=== PATIENT | female | born 1960 | race Caucasian/White ===

== ENCOUNTER 2016-10-15 17:27 | Observation (INO) ==
[2016-10-15] MEDS ORDERED: Naloxone 0.4 MG/ML INJ IVP PRN (21:18)
--- NOTE | 2016-10-15 21:54 | Internal Med History&Physical ---
Date of Encounter: 10/15/16 Time of Encounter: 21:48 Assessment and Plan (1) New onset seizure Current visit: Yes Status: Acute 1 patient had a witnessed seizure today she was incontinent of bowel. Patient does not have any past history of seizure CT of head was negative for any intracranial abnormalities. We will place on seizure precautions 2 we will obtain MRI of head and brain without contrast 3 obtain EEG 4Consult neurology (2) Chest pain Current visit: Yes Status: Acute 1 patient states that she has been experiencing intermittent chest pain which she describes as sharp nonradiating. No aggravating or relieving factors and is relieved on own. First cardiac troponin is 0.0564 continue to trend cardiac troponins 2 we will obtain a EKG, continuous cardiac monitoring 3 we will continue with aspirin and statin, beta elzbieta 4 we will obtain cardiac echo 5 consult cardiology Qualifiers: Chest pain type: unspecified Qualified Code(s): R07.9 - Chest pain, unspecified (3) Hypertension Current visit: Yes Status: Acute 1 presently controlled we will continue with home medications Qualifiers: Hypertension type: essential hypertension Qualified Code(s): I10 - Essential (primary) hypertension (4) DVT prophylaxis Current visit: Yes Status: Acute 1 SCDs Internal Medicine - H&P: HPI Chief complaint: Seizure Admitted From: Hospital to Hospital Transfer Plans for Post Hospital Care: Home History of present illness: Ms. Parker is a 56 year old female Past medical history of hypertension and hyperlipidemia GERD headaches chronic back pain. Information obtained from medical records/patient. Patient was shopping at a local grocery store when she was at the checkout line and she began to feel lightheaded somewhat dazed. She thought that maybe due to low sugar and drank some sweet tea. Her son noted that she was sweating profusely. Once she her family got into the car the patient tensed up and began to have seizure activity. Has reports that she was foaming at the mouth and lost control of her bowels. This episode occurred approximately 1:15. EMS was called and patient was transported to [facility]. Once at the ED the patient remained and responsive to verbal stimuli. After administering ammonia salts patient awoke became agitated she is moving all extremities at that time CT of her head was obtained which was negative for any intracranial abnormality when she returned back from CT scan patient was more awake appropriate following commands. Lab work was obtained her drug screen was negative troponin was 0.056 lactate was 3 white count 16.3 BUN was 20 and creatinine 1.32 urinalysis with small amount of gastritis and a few bacteria CT of head asymmetry of the frontal horns radiology does not find no significant some minimal inflammatory changes involving last mastoid sinus. Patient was transported to our facility for further workup and evaluation. Patient does admit that she has not been feeling well for the past week. She has been experiencing off and on headaches which she describes as throbbing totally encompassing her head they are relieved with ibuprofen. She denies any photophobia or vision changes nausea or vomiting with headaches. She also has been experiencing midsternal sharp nonradiating chest pain which comes and goes there are no aggravating or relieving factors the pain last proximally 10 minutes and resolves on own she denies any family history of seizures she denies any past cardiac history or cardiac workup. Presently she denies any chest pain or shortness of breath no seizure activity noted at this time lung sounds are clear heart sounds S1 and S2 with no rubs clicks gallops murmurs noted neuro check within normal limits cranial nerves II through XII are intact. She is hemodynamically stable this time. I reviewed this case with who agrees with plan. Past Med Surg Social Fam HX - Family History Mother Living Status: Cause of : Heart Father Living Status: Cause of : Colon cancer Internal Medicine - H&P: Meds Allergies No Known Allergies Allergy (Verified 10/15/16 21:51) All Systems PM: A 10-system review of systems was performed and is negative for pertinent findings except as documented above in the HPI. - Constitutional Constitutional: excessive sweating, no chills, no fever(s), no night sweats - EENT Eyes: no change in vision, no discharge, no pain, no photophobia - Cardiovascular Cardiovascular ROS IM: chest pain, lightheadedness, no diaphoresis, no dyspnea, no palpitations, no syncope - Respiratory Respiratory: no cough, no dyspnea, no wheezing, no excessive phlegm production - Gastrointestinal Gastrointestinal: no abdominal pain, no diarrhea, no hematemesis, no hematochezia, no melena, no nausea, no vomiting - Genitourinary Genitourinary: no change in urinary stream, no dysuria, no flank pain, no hematuria - Musculoskeletal Musculoskeletal ROS IM: no numbness, no tingling - Integumentary Integumentary IM: no rash, no unusual bruising - Neurological Neurological ROS: headache(s), no confusion, no convulsions, no focal weakness, no numbness, no tingling, no tremor(s) - Constitutional Vitals: Temp Pulse Resp BP Pulse Ox 98.3 F 86 18 145/84 96 10/15/16 19:51 10/15/16 19:51 10/15/16 19:51 10/15/16 19:51 10/15/16 19:51 General appearance: Present: A&O X 3, answers questions appropriately - Head Head exam: Present: atraumatic, normocephalic - Eye Eye exam: Present: PERRL, conjuntiva pink, sclera anicteric Pupils: Present: PERRL - Neck Neck exam general surgery: Present: supple, trachea midline. Absent: lymphadenopathy - Respiratory Respiratory exam: Present: CTAB. Absent: accessory muscle use, rales, rhonchi, wheezes - Cardiovascular Cardiovascular exam: Present: RRR, +S1, +S2. Absent: diastolic murmur, gallop, rubs, systolic murmur - GI/Abdominal GI/Abdominal exam: Present: normal bowel sounds, soft, no peritoneal signs. Absent: distended, tenderness - Extremities Exam Extremities exam: Present: warm, radial pulses palpable and symetrical. Absent : calf tenderness, cyanotic, pedal edema - Skin Skin exam: Present: dry, intact Internal Med - H&P Results - Labs Labs: Lab work drawn 10/15/2016 CBC WBC 16.3 hemoglobin 13.8 hematocrit 43.8 platelets 304 Chemistries sodium 149 potassium 3.5 chloride 106 bicarbonate 18 BUN 23 and 1.3 to glucose 181 GFR 50 PT 12.6 troponin 0. 056 lactate 3
[2016-10-15] MEDS ORDERED: Aspirin 325 MG TABLET PO ONE (22:01)
[2016-10-15] MEDS ORDERED: *HR* LORazepam 2 MG/ML VIAL IVP PRN (23:29)
[2016-10-15] MEDS ORDERED: Benzocaine 20% 9 GM GEL..GRAM. TP PRN (23:29)
[2016-10-16] MEDS: 0.9 % Sodium Chloride 1,000 ML IVC SCH ×3 (00:23→21:25)
[2016-10-16 03:20] LABS: Basophils # 0.1 K/mcL (0.0-0.2); Basophils % 0.5 %; Eosinophils # 0.1 K/mcL (0.0-0.6); Eosinophils % 0.7 %; Hematocrit 36.2 % (35.3-44.9); Hemoglobin 11.9 g/dL (11.5-15.4); Immature Granulocytes % 0.6 % (0-4); Immature Platelets 3.1 % (1.1-6.1); Lymphocytes # 2.7 K/mcL (0.6-4.6); Lymphocytes % 22.2 %; Mean Corpuscular HGB Conc 32.9 g/dL (31.6-35.5); Mean Corpuscular Hemoglobin 28.8 pg (28.0-33.3); Mean Corpuscular Volume 87.7 fL (83.0-100.0); Monocytes # 1.1 K/mcL (0.0-1.3); Monocytes % 8.6 %; Neutrophils # 8.2 K/mcL (1.6-8.9); Platelet Count 216 K/mcL (140-400); Red Blood Count 4.13 M/mcL (3.82-4.97); Red Cell Distribution Width 13.9 % (11.5-14.5); Segmented Neutrophils % 67.4 %
[2016-10-16 03:34] LABS: BUN/Creatinine Ratio 16 (6-26); Blood Urea Nitrogen 15 mg/dL (7-20); Carbon Dioxide 21 mEq/L (19-29); Chloride 108 mEq/L (98-109); Chol/HDL Ratio 4.3 (0-4.9); Cholesterol 173 mg/dL (< 200); Glucose 115 mg/dL (70-99); HDL Cholesterol 40 mg/dL (40-59); LDL Cholesterol,Calculated 85 mg/dL (0-99); Osmolality,Calculated 294 (280-300); Sodium 141 mEq/L (136-145); Triglycerides 238 mg/dL (< 150); eGFR For African Americans > 60 (> 60); eGFR For Non-African Americans > 60 (> 60)
[2016-10-16 03:40] LABS: Potassium 2.4 mEq/L (3.5-4.5)
[2016-10-16 03:54] LABS: Thyroid Stimulating Hormone 1.608 mcIU/mL (0.350-4.840)
[2016-10-16 06:15] LABS: Hemoglobin A1C 5.7 %
--- NOTE | 2016-10-16 09:36 | Internal Med Progress Note ---
<Juan J Cloud Jackson - Last Filed: 10/16/16 10:38> Date of Encounter: 10/16/16 Time of Encounter: 09:31 - Assessment and plan (1) Hypokalemia Current Visit: Yes Status: Acute Assessment and plan: Mrs. Parker states that she has a history of hypokalemia and takes daily oral potassium. She denies ever having a potassium as low as 2.4 in the past. - She does admit to taking a diuretic such as Lasix 40 daily for fluid retention. Plan: - Patient received 1 dose of oral potassium this morning. - Stat repeat on potassium level - will give 40 meq potassium orally now. - May require IV potassium replacement. (2) New onset seizure Current Visit: Yes Status: Acute Assessment and plan: patient had a witnessed seizure today she was incontinent of bowel. Patient denies any past history of seizure. CT of head was negative for any intracranial abnormalities. Currently on seizure precautions and denies any seizure activity since admission. -TSH 1.608 - Potassium 2.4 - Magnesium 2.0 Discussion with the patient demonstrates that she had recent changes(in the last 5 months) to her SNRI and SSRI dosing at home. This is likely contributing to her current seizure activity. - Her medications are not updated and nursing has called the pharmacy to obtain a recent medication list so that we can address her underlying medical conditions. - She has a history of thyroid cancer with a total thyroidectomy. Today's TSH is 1.608, calcium is 8.0 Plan: -Neurology has been consulted - Continue seizure precautions - Continue to replace potassium deficiency. - Interventional radiology consult to for lumbar puncture. (3) Chest pain Current Visit: Yes Status: Acute Assessment and plan: Patient presented with atypical chest pain with intermittent episodes of substernal to right chest pain, she is not taking anything to relieve it she denies any exacerbating factors and it does not radiate anywhere. - Thrombolysis In Myocardial Infarction Score: 3 ( greater than 3 risk factors for coronary artery disease, aspirin use in the last 7 days, 2 episodes of angina in 24 hours) Score of 3 = 13.2% risk 14 days of: all-cause mortality, new or recurrent MN, or severe recurrent ischemia requiring urgent revascularization. - EKG Chad's normal sinus rhythm without any ST elevations or inversions with normal access. There is a prolonged QTC at 0.440 likely secondary to hypokalemia. Plan: - Continue with aspirin daily 81 mg - Lipitor 40 mg by mouth daily Qualifiers: Chest pain type: unspecified Qualified Code(s): R07.9 - Chest pain, unspecified (4) Hypertension Current Visit: Yes Status: Acute Assessment and plan: Patient states that she takes Lopressor 100 mg twice a day for her blood pressure. Current medication list reconciled does not demonstrate any antihypertensives. Patient is hypertensive currently. Plan: - Patient states that she takes Lopressor 100 mg twice a day we will continue that currently. Qualifiers: Hypertension type: essential hypertension Qualified Code(s): I10 - Essential (primary) hypertension (5) DVT prophylaxis Current Visit: Yes Status: Acute Assessment and plan: SCD - Subjective Interval history: Mrs. Parker 56-year-old female has been seen and evaluated patient bedside this morning. She is alert, awake, no acute distress and denies any seizure activity since her 1 episode. She denies any headaches, blurry vision, trouble with thought process, chest pain, chest pressure, palpitations, nausea vomiting diarrhea constipation or abdominal pain. She denies any urinary discomfort and burning or blood in her urine. She denies any recent illnesses in the last 6 months. She did have her thyroid removed roughly 5 months ago secondary to thyroid cancer. In describing the events leading up to her seizure she said she was in her normal state of health without any fevers, chills, change in diet or sleep awake cycles. She said roughly 5 months ago she had her Effexor dose increased for her depression. She denies missing any doses of home medications. Currently she feels back to her normal self and denies any neurologic changes. - Constitutional Vitals: Temp Pulse Resp BP Pulse Ox 98.3 F 99 15 157/88 95 10/16/16 06:21 10/16/16 06:21 10/16/16 06:21 10/16/16 06:21 10/16/16 06:21 General appearance: Present: A&O X 3, answers questions appropriately Exam: General: Patient alert, awake, oriented 3, interactive, in no acute distress HEENT: Normocephalic, atraumatic, pupils equal reactive to light, nasal cavity patent and open septum median position, oral mucosa moist, bite koo in the left lateral tongue. uvula midline, neck supple trachea midline no palpable lymphadenopathy, Chest: Symmetric bilateral correlating with respiratory effort, effort nonlabored. Cardiac: Regular rate and rhythm, positive S1, S2, no bruits appreciated bilateral carotids, Radial pulses 2+ bilateral, posterior tibial and dorsal pedal pulses 2+ bilateral. Respiratory: Clear to auscultation all lung owens Abdomen: Soft, nontender, positive bowel sounds, no palpable masses appreciated on examination Extremities: Symmetric bilateral, no erythema or edema, patient moving all 4 extremities spontaneously. Neurologic: No focal deficits appreciated on examination. Face symmetric, muscle strength symmetric bilateral upper and lower extremities. Pupils 5-6 mm symmetric bilateral, hyperreflexic 3+ bilateral lower extremities with diminished upper reflexes. Internal Medicine: Result - Labs CBC & Chem 7: 10/16/16 02:46 10/16/16 09:45 Labs: Short CBC 10/16/16 Range/Units 02:46 WBC 12.2 H (4.3-11.1) K/mcL Hgb 11.9 (11.5-15.4) g/dL Hct 36.2 (35.3-44.9) % Plt Count 216 (140-400) K/mcL Neutrophils # 8.2 (1.6-8.9) K/mcL BMP 10/16/16 02:46 Sodium 141 Potassium 2.4 L* Chloride 108 Carbon Dioxide 21 BUN 15 Creatinine 0.91 Glucose 115 H Calcium 8.0 L Cardiac Enzymes 10/15/16 10/16/16 Range/Units 22:12 02:46 Troponin I 0.01 0.01 (0-0.03) ng/mL - Impressions Impressions Chest X-Ray 10/15/16 21:24 IMPRESSION: No acute process. D/ / Thierry Lam MD / Thierry Lam MD Interpreting Provider: Thierry Lam MD - VTE Documentation of Mechanical Device: Graduated compression elastic hosiery Consult Discharge Plan - Plan Referrals: Amira Oro MD [Primary Care Provider] - <Dannie Ndiaye - Last Filed: 10/16/16 15:13> Date of Encounter: 10/16/16 - Constitutional Vitals: Temp Pulse Resp BP Pulse Ox 98.3 F 108 15 163/87 95 10/16/16 11:00 10/16/16 11:00 10/16/16 11:00 10/16/16 11:00 10/16/16 11:00 Internal Medicine: Result - Labs CBC & Chem 7: 10/16/16 02:46 10/16/16 14:33 Labs: Short CBC 10/16/16 Range/Units 02:46 WBC 12.2 H (4.3-11.1) K/mcL Hgb 11.9 (11.5-15.4) g/dL Hct 36.2 (35.3-44.9) % Plt Count 216 (140-400) K/mcL Neutrophils # 8.2 (1.6-8.9) K/mcL BMP 10/16/16 10/16/16 10/16/16 02:46 09:45 14:33 Sodium 141 Potassium 2.4 L* 2.6 L 2.8 L Chloride 108 Carbon Dioxide 21 BUN 15 Creatinine 0.91 Glucose 115 H Calcium 8.0 L Cardiac Enzymes 10/15/16 10/16/16 Range/Units 22:12 02:46 Troponin I 0.01 0.01 (0-0.03) ng/mL Urine 10/16/16 Range/Units 09:20 Urine Color Yellow (Yellow) Urine Clarity Clear (Clear) Urine pH 6.0 (5.0-8.0) pH Units Ur Specific [place] 1.029 H (1.010-1.025) Urine Protein Trace (Neg-Trace) mg/dL Urine Glucose (UA) Normal (Normal) mg/dL - Impressions Impressions Chest X-Ray 10/15/16 21:24 IMPRESSION: No acute process. D/ / Thierry Lam MD / Thierry Lam MD Interpreting Provider: Thierry Lam MD - Attending Attestation I saw and examined pt. I have discussed with Resident Dr Cloud regarding pt's management plan. I agree with the documentation. Pt present with witnessed seizure with tongue bite. No previous hx of seizure. Pt feels fine now, no further seizure, denies fever, headache, or dizziness. Neuro consult appreciated. Need to r/o infection etiology. Acyclovir started empirically. Need MRI and LP per neuro. Cont seizure precaution.
[2016-10-16 10:11] LABS: Bilirubin,Urine Negative (Negative); Blood,Urine Negative (Negative); Clarity,Urine Clear (Clear); Color,Urine Yellow (Yellow); Glucose,Urine (UA) Normal (Normal); Ketones,Urine Negative (Negative); Leukocyte Esterase,Urine Small (Negative); Nitrite,Urine Negative (Negative); Protein,Urine Trace mg/dL (Neg-Trace); Specific Gravity,Urine 1.029 (1.010-1.025); Urobilinogen,Urine Normal (Normal)
[2016-10-16 10:12] LABS: Bacteria,Urine None Seen per hpf (None-Few); Hyaline Casts,Urine None Seen per lpf (None-Few); Squamous Epithelial Cell,Urine Many per lpf (None-Few); WBC,Urine 15-30 per hpf (0-3)
[2016-10-16] MEDS ORDERED: Potassium Chloride 40 MEQ, Lidocaine 1% 2 ML in D5% in Water 500 ML IVPB ONE (10:45)
--- NOTE | 2016-10-16 12:14 | Neurology - Consult Note ---
Date of Encounter: 10/16/16 Time of Encounter: 12:09 Assessment and Plan (1) New onset seizure Current Visit: Yes Status: Acute 56-year old woman with new-onset seizure in a patient with history of thyroid cancer, many months of nightsweats, low potassium, asymmetric reflexes, highly suspicious for cancer metastasis to the brain. Needs further evaluation. 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 Serotonin syndrome is a diagnosis of exclusion in this condition, but seems least likely, given the other constellation of symptoms and findings and the time course. MRI brain with and without contrast Seizure precautions ESR, CRP, HSV PCR, lumbar puncture (prophylactic acyclovir) Neurology follow-up tomorrow. History of Present Illness Chief complaint: seizure HPI: Ms. Parker is a 56 year old female with prior history of thyroid cancer, family history of colon cancer and lymphoma, who had a seizure at [facility]. Had LOC, urine and fecal incontinence, and tongue biting. Had a long post-ictal phase in the ER. She was admitted to the hospital through another ER/hospital for evaluation. She states that she has depression and is on two medications for the same, but her doses have not been changed recently. Last change was in May. She also states that she has been having night sweats for many months. Her thyroid cancer was discovered in a thyroidectomy, in march 2016. She states that she is back to her normal self now. 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 Past Med Surg Social Fam HX - Past Medical History Medical history: hypertension, thyroid disease (history of thyroid cancer) Psychiatric history: depression - Past Surgical History Surgical History: hysterectomy, orthopedic, other, thyroidectomy (had thyroid cancer) - Social History Smoking Status: Never smoker Alcohol use: none Drug use: none - Family History Mother Living Status: Age at : 76 Cause of : Heart Hx Family Cardiac Disorders: Yes Father Living Status: Age at : 66 Cause of : Colon cancer Medications and Allergies Estrogens, Conjugated [Premarin Cream] 1 appl VG 4XW 10/16/16 [History] Etodolac 500 mg PO BID 10/16/16 [History] Levothyroxine [Synthroid] 100 mcg PO 0630 10/16/16 [History] Levothyroxine [Synthroid] 125 mcg PO 0610/16/16 [History] Liothyronine Sodium [Cytomel] 5 mcg PO DAILY 10/16/16 [History] Oxycodone HCl/Acetaminophen [Percocet 5-325 mg Tablet] 1 - 2 each PO Q4H PRN [History] Venlafaxine XR (24 HR) [Effexor XR] 75 mg PO DAILY 10/16/16 [History] Venlafaxine XR (24 HR) [Effexor XR] 150 mg PO DAILY 10/16/16 [History] Allergies No Known Allergies Allergy (Verified 10/15/16 21:51) All Systems: A 10-system review of systems was performed and is negative for pertinent findings except as documented above in the HPI. Physical Examination - Vital Signs Vital Signs: Initial Vital Signs Temp Pulse Resp BP Pulse Ox 98.3 F 86 18 145/84 96 10/15/16 19:51 10/15/16 19:51 10/15/16 19:51 10/15/16 19:51 10/15/16 19:51 Vital Signs - 24 hr 10/15/16 19:51 10/15/16 23:01 10/16/16 03:16 Temperature 98.3 F 98.4 F 98.5 F Pulse Rate 86 99 103 Respiratory Rate 18 17 17 Blood Pressure 145/84 157/94 138/87 O2 Sat by Pulse Oximetry 96 95 96 10/16/16 06:21 10/16/16 09:00 Temperature 98.3 F Pulse Rate 99 Respiratory Rate 15 Blood Pressure 157/88 O2 Sat by Pulse Oximetry 95 95 - Constitutional General appearance: comfortable - Neurologic Sensorimotor examination: intact Motor examination - right side: 5/5: deltoids, biceps, triceps, wrist flexion, wrist extension, order desk caller, hip flexors, tibialis Anterior, quadriceps, toe extension (EHL), plantarflexion Motor examination - left side: 5/5: deltoids, biceps, triceps, wrist flexion, wrist extension, hip flexors, order desk caller, quadriceps, tibialis Anterior, toe extension (EHL), plantarflexion Detailed sensory examination: intact Reflexes: Biceps: 3+, Triceps: 3+, Brachioradialis: 3+, Patella: 3+, Achilles: 3 + (asymmetric hyper-reflexia on the left - 3+ on left, 2+ on right, bilaterally up going toes.) Mental Status Examination: awake, alert, oriented to person, oriented to place, oriented to time, follows commands appropriately, answers questions appropriately, no agnosia, no aphasia, no aproxia Cranial nerve examination: PERRL, EOMI, visual owens intact, corneal reflexes brisk symmetrically, sensory to face intact, mastication intact, no facial asymmetry is present, no dysarthria, hearing is intact symmetrically, soft palate elevates bilaterally upon phonation, gag reflex intact, flexes SCM and trapezius muscles symmetrically with full power, tongue protrudes midline, no atrophy or facial fasiculations present Cerebellar examination: no dysmetria, performs finger to nose and heel to lockhart symmetrically without ataxia, no gait ataxia, no truncal ataxia, no difficulty with rapid alternating movements Results - Laboratory Findings CBC and BMP: 10/16/16 02:46 10/16/16 09:45 Abnormal lab findings: Abnormal lab results WBC 12.2 K/mcL (4.3-11.1) H 10/16/16 02:46 Potassium 2.6 mEq/L (3.5-4.5) L 10/16/16 09:45 Glucose 115 mg/dL (70-99) H 10/16/16 02:46 POC Glucose 130 (58-89) H 10/15/16 20:10 Hemoglobin A1c 5.7 % (-5.6) H 10/16/16 02:46 Calcium 8.0 mg/dL (8.6-10.8) L 10/16/16 02:46 Triglycerides 238 mg/dL (< 150) H 10/16/16 02:46 VLDL Cholesterol, Calc 48 mg/dL (< 31) H 10/16/16 02:46 Ur Specific [place] 1.029 (1.010-1.025) H 10/16/16 09:20 Ur Leukocyte Esterase Small (Negative) H 10/16/16 09:20 Urine Microscopic RBC 3-5 per hpf (0-3) H 10/16/16 09:20 Urine Microscopic WBC 15-30 per hpf (0-3) H 10/16/16 09:20 Ur Squamous Epith Cells Many per lpf (None-Few) H 10/16/16 09:20 Ur Culture Indicated? YES (NO) A 10/16/16 09:20 - Diagnostic Findings Additional findings: CTH (OSH): asymmetric ventricles (original not seen). Chest X-Ray 10/15/16 21:24 IMPRESSION: No acute process. D/ / Thierry Lam MD / Thierry Lam MD Interpreting Provider: Thierry Lam MD Consult Discharge Plan - Plan Referrals: Amira Oro MD [Primary Care Provider] -
[2016-10-16] MEDS: Acyclovir 750 MG in D5% in Water 250 ML IVPB SCH ×2 (12:57→21:23)
[2016-10-16] MEDS: Metoprolol 100 MG TABLET PO SCH (22:12)
[2016-10-17 05:41] LABS: Basophils # 0.1 K/mcL (0.0-0.2); Eosinophils # 0.1 K/mcL (0.0-0.6); Eosinophils % 1.5 %; Hematocrit 36.8 % (35.3-44.9); Hemoglobin 11.4 g/dL (11.5-15.4); Immature Granulocytes % 0.3 % (0-4); Lymphocytes # 2.2 K/mcL (0.6-4.6); Lymphocytes % 30.8 %; Mean Corpuscular Hemoglobin 28.4 pg (28.0-33.3); Mean Corpuscular Volume 91.8 fL (83.0-100.0); Mean Platelet Volume 10.3 fL (9.4-12.4); Monocytes # 0.7 K/mcL (0.0-1.3); Monocytes % 9.9 %; Neutrophils # 4.1 K/mcL (1.6-8.9); Platelet Count 186 K/mcL (140-400); Red Blood Count 4.01 M/mcL (3.82-4.97); Red Cell Distribution Width 14.4 % (11.5-14.5); Segmented Neutrophils % 56.5 %
[2016-10-17 05:58] LABS: Alanine Aminotransferase 20 Units/L (0-55); Alkaline Phosphatase 74 Units/L (38-126); Aspartate Amino Transferase 20 Units/L (5-34); BUN/Creatinine Ratio 12 (6-26); Bilirubin,Total 0.3 mg/dL (0.2-1.2); Blood Urea Nitrogen 10 mg/dL (7-20); Calcium 7.9 mg/dL (8.6-10.8); Carbon Dioxide 20 mEq/L (19-29); Chloride 116 mEq/L (98-109); Glucose 107 mg/dL (70-99); Osmolality,Calculated 298 (280-300); Sodium 144 mEq/L (136-145); eGFR For African Americans > 60 (> 60); eGFR For Non-African Americans > 60 (> 60)
[2016-10-17] MEDS ORDERED: *HR* Enoxaparin 40 MG/0.4 ML SYRINGE SQ SCH (06:00)
[2016-10-17] MEDS: Acyclovir 750 MG in D5% in Water 250 ML IVPB SCH ×2 (06:06→14:42)
--- NOTE | 2016-10-17 08:04 | Internal Med Progress Note ---
Addendum entered and electronically signed by Juan J Cloud DO 10/17 13:19: Gram-positive UTI: Patient asymptomatic, patient did present with new onset seizure. Currently on ceftriaxone. Original Note: <Juan J Cloud - Last Filed: 10/17/16 13:12> Date of Encounter: 10/17/16 Time of Encounter: 08:04 - Assessment and plan (1) Hypokalemia Current Visit: Yes Status: Acute Assessment and plan: Mrs. Parker states that she has a history of hypokalemia and takes daily oral potassium. She denies ever having a potassium as low as 2.4 in the past. - She does admit to taking a diuretic such as Lasix 40 daily for fluid retention. 10/17/2016 potassium 4.0, patient stable Plan: Continue to monitor potassium level and replace as necessary. -Repeat EKG to monitor QT length. - Continue to avoid using QT prolonging medications. (2) New onset seizure Current Visit: Yes Status: Acute Assessment and plan: patient had a witnessed seizure today she was incontinent of bowel. Patient denies any past history of seizure. CT of head was negative for any intracranial abnormalities. Currently on seizure precautions and denies any seizure activity since admission. -TSH 1.608 - Potassium 2.4 - Magnesium 2.0 Discussion with the patient demonstrates that she had recent changes(in the last 5 months) to her SNRI and SSRI dosing at home. This is likely contributing to her current seizure activity. - Her medications are not updated and nursing has called the pharmacy to obtain a recent medication list so that we can address her underlying medical conditions. - She has a history of thyroid cancer with a total thyroidectomy. Today's TSH is 1.608, calcium is 8.0 10/17/2016: Patient has been stable overnight, potassium corrected. Neurology evaluated the patient yesterday, plan for lumbar puncture today, MRI with and without contrast to evaluate for risk of metastatic disease from recent thyroid cancer. Plan: -Neurology has been consulted - Continue seizure precautions - Continue to replace potassium deficiency. - lumbar puncture today. - MRI with and without contrast pending. (3) Chest pain Current Visit: Yes Status: Acute Assessment and plan: Patient presented with atypical chest pain with intermittent episodes of substernal to right chest pain, she is not taking anything to relieve it she denies any exacerbating factors and it does not radiate anywhere. - Thrombolysis In Myocardial Infarction Score: 3 ( greater than 3 risk factors for coronary artery disease, aspirin use in the last 7 days, 2 episodes of angina in 24 hours) Score of 3 = 13.2% risk 14 days of: all-cause mortality, new or recurrent SC, or severe recurrent ischemia requiring urgent revascularization. - EKG demonstrates normal sinus rhythm without any ST elevations or inversions with normal access. There is a prolonged QTC at 0.440 likely secondary to hypokalemia. 10/17/2016 no chest pain today. Plan: - Continue with aspirin daily 81 mg - Lipitor 40 mg by mouth daily Qualifiers: Chest pain type: unspecified Qualified Code(s): R07.9 - Chest pain, unspecified (4) Hypertension Current Visit: Yes Status: Acute Assessment and plan: Patient states that she takes Lopressor 100 mg twice a day for her blood pressure. Current medication list reconciled does not demonstrate any antihypertensives. Currently normotensive Plan: - Patient states that she takes Lopressor 100 mg twice a day we will continue that currently. Qualifiers: Hypertension type: essential hypertension Qualified Code(s): I10 - Essential (primary) hypertension (5) DVT prophylaxis Current Visit: Yes Status: Acute Assessment and plan: Lovenox 40 mg subcutaneous daily. - Subjective Interval history: Mrs. Parker 56-year-old female has been seen and evaluated patient bedside this morning. She is alert, awake, no acute distress and denies any seizure activity since her 1 episode. She denies any headaches, blurry vision, trouble with thought process, chest pain, chest pressure, palpitations, nausea vomiting diarrhea constipation or abdominal pain. She denies any urinary discomfort and burning or blood in her urine. Further discussion regarding her night sweats demonstrates that she has had nightly sweating since her hysterectomy in this is not a new process. She denies any changes overnight, denies any seizure activity lightheadedness dizziness forgetfulness or any new or concerning neurologic symptoms. She is feeling back to her normal self. - Constitutional Vitals: Temp Pulse Resp BP Pulse Ox 98.4 F 92 16 129/82 97 10/17/16 07:02 10/17/16 07:02 10/17/16 07:02 10/17/16 07:02 10/17/16 07:02 General appearance: Present: A&O X 3, answers questions appropriately Exam: General: Patient alert, awake, oriented 3, interactive, in no acute distress HEENT: Normocephalic, atraumatic, pupils equal reactive to light, nasal cavity patent and open septum median position, oral mucosa moist, bite koo in the left lateral tongue. uvula midline, neck supple trachea midline no palpable lymphadenopathy, Chest: Symmetric bilateral correlating with respiratory effort, effort nonlabored. Cardiac: Regular rate and rhythm, positive S1, S2, no bruits appreciated bilateral carotids, Radial pulses 2+ bilateral, posterior tibial and dorsal pedal pulses 2+ bilateral. Respiratory: Clear to auscultation all lung owens Abdomen: Soft, nontender, positive bowel sounds, no palpable masses appreciated on examination Extremities: Symmetric bilateral, no erythema or edema, patient moving all 4 extremities spontaneously. Neurologic: No focal deficits appreciated on examination. Face symmetric, muscle strength symmetric bilateral upper and lower extremities. Pupils 5-6 mm symmetric bilateral, hyperreflexic 3+ bilateral lower extremities with diminished upper reflexes. Internal Medicine: Result - Labs CBC & Chem 7: 10/17/16 04:43 10/17/16 04:43 Labs: Short CBC 10/17/16 Range/Units 04:43 WBC 7.3 (4.3-11.1) K/mcL Hgb 11.4 L (11.5-15.4) g/dL Hct 36.8 (35.3-44.9) % Plt Count 186 (140-400) K/mcL Neutrophils # 4.1 (1.6-8.9) K/mcL BMP 10/16/16 10/16/16 10/17/16 09:45 14:33 04:43 Sodium 144 Potassium 2.6 L 2.8 L 4.0 D Chloride 116 H Carbon Dioxide 20 BUN 10 Creatinine 0.85 Glucose 107 H Calcium 7.9 L Liver Function 10/17/16 Range/Units 04:43 Total Bilirubin 0.3 (0.2-1.2) mg/dL AST 20 (5-34) Units/L ALT 20 (0-55) Units/L Alkaline Phosphatase 74 (38-126) Units/L Albumin 3.0 L (3.5-5.0) g/dL Urine 10/16/16 Range/Units 09:20 Urine Color Yellow (Yellow) Urine Clarity Clear (Clear) Urine pH 6.0 (5.0-8.0) pH Units Ur Specific [place] 1.029 H (1.010-1.025) Urine Protein Trace (Neg-Trace) mg/dL Urine Glucose (UA) Normal (Normal) mg/dL - VTE Documentation of Mechanical Device: Intermittent pneumatic compression device Consult Discharge Plan - Plan Referrals: Amira Oro MD [Primary Care Provider] - <Dannie Ndiaye - Last Filed: 10/17/16 14:33> Date of Encounter: 10/17/16 - Constitutional Vitals: Temp Pulse Resp BP Pulse Ox 98.5 F 89 16 128/66 93 10/17/16 11:54 10/17/16 11:54 10/17/16 11:54 10/17/16 11:54 10/17/16 11:54 Internal Medicine: Result - Labs CBC & Chem 7: 10/17/16 04:43 10/17/16 04:43 Labs: Short CBC 10/17/16 Range/Units 04:43 WBC 7.3 (4.3-11.1) K/mcL Hgb 11.4 L (11.5-15.4) g/dL Hct 36.8 (35.3-44.9) % Plt Count 186 (140-400) K/mcL Neutrophils # 4.1 (1.6-8.9) K/mcL BMP 10/16/16 10/17/16 14:33 04:43 Sodium 144 Potassium 2.8 L 4.0 D Chloride 116 H Carbon Dioxide 20 BUN 10 Creatinine 0.85 Glucose 107 H Calcium 7.9 L Liver Function 10/17/16 Range/Units 04:43 Total Bilirubin 0.3 (0.2-1.2) mg/dL AST 20 (5-34) Units/L ALT 20 (0-55) Units/L Alkaline Phosphatase 74 (38-126) Units/L Albumin 3.0 L (3.5-5.0) g/dL - Impressions Impressions Brain MRI 10/17/16 08:09 IMPRESSION: Motion degraded study. No acute intracranial abnormality. D/ / Jos Sadler MD / Jos Sadler MD Interpreting Provider: Jos Sadler MD - Attending Attestation I saw and examined pt. I have discussed with Resident Dr Cloud regarding pt's management plan. I agree with the documentation. Pt has no dizziness or lightheaded. Mild headache earlier this morning but resolved now. Neck is supple, pupils equal and round. MRI done, results unremarkable. LP scheduled this PM. Neurology on case and recommendation will be followed.
[2016-10-17] MEDS: Aspirin 81 MG TAB.CHEW PO SCH (11:12)
[2016-10-17] MEDS: Venlafaxine XR (24 HR) 150 MG CAP.ER.24H PO SCH (11:12)
[2016-10-17] MEDS: Venlafaxine XR (24 HR) 75 MG CAP.ER.24H PO SCH (11:12)
[2016-10-17] MEDS: Metoprolol 100 MG TABLET PO SCH ×2 (11:12→22:36)
[2016-10-17 12:35] LABS: C-Reactive Protein 9 mg/L (Less than 5)
--- NOTE | 2016-10-17 14:44 | EEG/EMG/Oth Biometrics Report ---
EEG Procedure Report Date of procedure: 10/17/16 EEG Procedure: Routine EEG Procedure Note: This is a report of a 21 channel bipolar and referential montage EEG. The posterior dominant rhythm of 9-10 Hz moderate voltage alpha frequencies identified symmetrically in the posterior head regions. This rhythm attenuates symmetrically with eye opening. Hyperventilation is performed and results in desynchronization of the recording. However no epileptiform activity was identified during hyperventilation. Posterior drowsiness and stage II sleep were identified as referenced by dropout of the posterior dominant rhythm, and the emergence of vertex activity, K complexes, and sleep spindles. Photic stimulation is performed and produces a symmetric driving response. The EKG rhythm strip reveals normal sinus rhythm at 90 beats per minute. Impressions: This EEG recording is within normal limits. There is no evidence of epileptiform activity identified during the study. Comment: A normal EEG does not preclude the diagnosis of seizure or epilepsy. If the clinical suspicion for seizure activity is high, serial EEGs or perhaps a prolonged recording may increase the yield. Please correlate clinically.
[2016-10-17 17:06] LABS: Red Blood Cell,CSF < 0.002 M/mcL
[2016-10-17 17:08] LABS: Appearance,CSF Clear (Clear)
[2016-10-17 17:34] LABS: Glucose,CSF 64 mg/dL (40-70); Total Protein,CSF 55 mg/dL (15-45)
--- NOTE | 2016-10-17 17:45 | Electrocardiograph Report ---
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
--- NOTE | 2016-10-17 18:24 | Neurology Progress Note ---
Date of Encounter: 10/17/16 Time of Encounter: 18:21 Assessment and Plan (1) Spell of altered consciousness Current Visit: Yes Status: Acute I suspect that this patient may have actually had a panic attack. It seems as if she was very diaphoretic and tachycardic about 15-20 minutes prior to the actual event occurred. And she has had panic attacks previously. Her neurologic examination, MRI scan of the brain, and EEG were all normal. I believe it is probably unlikely that she will experience an episode of generalized tonic-clonic seizure without and easily identifiable cause. Her left) was normal she is not hyponatremic. The lumbar puncture revealed only 6 WBCs. I am not at all convinced that this is a central nervous system infectious process. I recommend discontinuing the acyclovir. Recommend having her follow up with her primary care provider for management of her general anxiety disorder. I will reevaluate her at your request. Subjective Interval history: The chart was reviewed, the patient was seen and examined. She feels pretty much back to her normal baseline. She denies any headache, denies any confusion , denies any further episodes of altered consciousness. She informs me that she does have a history of panic attacks. Her son was with her at the [facility] when the episode occurred. He called his father and spoke to him and his dad thought that she might have been having a panic attack. She is not certain whether she lost fecal continence. She did bite the sides of her tongue. She denied any associated headache. She denies any prodrome of headache or confusion in the days leading up to this event. She did say however that she was very diaphoretic and tachycardic prior to this event. Interestingly the prodrome evolved over a period of about 15 minutes which is atypical for seizures which are generally paroxysmal and sudden in onset. She has been on empiric acyclovir. Lumbar puncture today revealed only 6 WBCs 90% lymphocytes. CSF protein was elevated at 55. Objective - Constitutional Vitals: Temp Pulse Resp BP Pulse Ox 97.9 F 74 16 114/76 94 10/17/16 15:48 10/17/16 15:48 10/17/16 15:48 10/17/16 15:48 10/17/16 15:48 - Neurological Exam Sensorimotor examination: Present: intact Motor examination - right side: 5/5: deltoids, biceps, triceps, wrist flexion, wrist extension, jump roll operator, hip flexors, tibialis Anterior, quadriceps, toe extension (EHL), plantarflexion Motor examination - left side: 5/5: deltoids, biceps, triceps, wrist flexion, wrist extension, hip flexors, jump roll operator, quadriceps, tibialis Anterior, toe extension (EHL), plantarflexion Sensation intact: Present: intact Reflexes: Biceps: 3+ (Symmetrically), Triceps: 3+ ("), Brachioradialis: 3+ ("), Patella: 3+ ("), Achilles: 3+ (") Mental Status Examination: Present: awake, alert, oriented to person, oriented to place, oriented to time, follows commands appropriately, answers questions appropriately, no agnosia, no aphasia, no aproxia Cranial nerve examination: Present: PERRL, EOMI, visual owens intact, corneal reflexes brisk symmetrically, sensory to face intact, mastication intact, no facial asymmetry is present, no dysarthria, hearing is intact symmetrically, soft palate elevates bilaterally upon phonation, gag reflex intact, flexes SCM and trapezius muscles symmetrically with full power, tongue protrudes midline, no atrophy or facial fasiculations present Cerebellar examination: Present: no dysmetria, performs finger to nose and heel to lockhart symmetrically without ataxia, no gait ataxia, no truncal ataxia, no difficulty with rapid alternating movements - VTE Documentation of Mechanical Device: Intermittent pneumatic compression device Results - Laboratory Findings CBC and BMP: 10/17/16 04:43 10/17/16 04:43 Abnormal lab findings: Abnormal lab results Hgb 11.4 g/dL (11.5-15.4) L 10/17/16 04:43 MCHC 31.0 g/dL (31.6-35.5) L 10/17/16 04:43 Chloride 116 mEq/L (98-109) H 10/17/16 04:43 Glucose 107 mg/dL (70-99) H 10/17/16 04:43 POC Glucose 130 (58-89) H 10/15/16 20:10 Hemoglobin A1c 5.7 % (-5.6) H 10/16/16 02:46 Calcium 7.9 mg/dL (8.6-10.8) L 10/17/16 04:43 C-Reactive Protein 9 mg/L (Less than 5) H 10/17/16 04:43 Albumin 3.0 g/dL (3.5-5.0) L 10/17/16 04:43 Albumin/Globulin Ratio 1.0 (1.1-2.2) L 10/17/16 04:43 Triglycerides 238 mg/dL (< 150) H 10/16/16 02:46 VLDL Cholesterol, Calc 48 mg/dL (< 31) H 10/16/16 02:46 Ur Specific [place] 1.029 (1.010-1.025) H 10/16/16 09:20 Ur Leukocyte Esterase Small (Negative) H 10/16/16 09:20 Urine Microscopic RBC 3-5 per hpf (0-3) H 10/16/16 09:20 Urine Microscopic WBC 15-30 per hpf (0-3) H 10/16/16 09:20 Ur Squamous Epith Cells Many per lpf (None-Few) H 10/16/16 09:20 Ur Culture Indicated? YES (NO) A 10/16/16 09:20 CSF Tot Nucleated Cells 6 TNC/mcL (0-5) H 10/17/16 15:28 CSF Total Protein 55 mg/dL (15-45) H 10/17/16 15:28 Consult Discharge Plan - Plan Referrals: Amira Oro MD [Primary Care Provider] -
[2016-10-17] MEDS ORDERED: Acetaminophen 325 MG TABLET PO PRN (18:34)
[2016-10-18 06:13] LABS: Basophils # 0.1 K/mcL (0.0-0.2); Basophils % 1.3 %; Eosinophils # 0.1 K/mcL (0.0-0.6); Eosinophils % 2.6 %; Hematocrit 34.7 % (35.3-44.9); Hemoglobin 11.3 g/dL (11.5-15.4); Immature Granulocytes % 0.2 % (0-4); Lymphocytes # 1.9 K/mcL (0.6-4.6); Lymphocytes % 35.2 %; Mean Corpuscular HGB Conc 32.6 g/dL (31.6-35.5); Mean Corpuscular Hemoglobin 29.5 pg (28.0-33.3); Mean Corpuscular Volume 90.6 fL (83.0-100.0); Mean Platelet Volume 10.3 fL (9.4-12.4); Monocytes # 0.5 K/mcL (0.0-1.3); Monocytes % 8.6 %; Neutrophils # 2.9 K/mcL (1.6-8.9); Platelet Count 155 K/mcL (140-400); Red Blood Count 3.83 M/mcL (3.82-4.97); Red Cell Distribution Width 14.3 % (11.5-14.5); Segmented Neutrophils % 52.1 %
[2016-10-18 06:30] LABS: Alanine Aminotransferase 22 Units/L (0-55); Albumin 2.9 g/dL (3.5-5.0); Alkaline Phosphatase 75 Units/L (38-126); Aspartate Amino Transferase 21 Units/L (5-34); BUN/Creatinine Ratio 12 (6-26); Bilirubin,Total 0.3 mg/dL (0.2-1.2); Blood Urea Nitrogen 9 mg/dL (7-20); Carbon Dioxide 22 mEq/L (19-29); Chloride 113 mEq/L (98-109); Globulin 2.9 g/dL (2.4-3.5); Glucose 97 mg/dL (70-99); Osmolality,Calculated 293 (280-300); Potassium 3.6 mEq/L (3.5-4.5); Sodium 142 mEq/L (136-145); Total Protein 5.8 g/dL (6.0-8.3); eGFR For African Americans > 60 (> 60); eGFR For Non-African Americans > 60 (> 60)
--- NOTE | 2016-10-18 08:50 | Discharge Summary ---
<Kit Osborn P - Last Filed: 10/18/16 16:54> Date of Encounter: 10/18/16 - Discharge Medications Prescriptions: Atorvastatin [Lipitor] 40 mg PO HS #30 tablet Home Medications: Estrogens, Conjugated [Premarin Cream] 1 appl VG 4XW 10/16/16 [History] Etodolac 500 mg PO BID 10/16/16 [History] Levothyroxine [Synthroid] [place] [address]/16/16 [History] Levothyroxine [Synthroid] [place] [address]/16/16 [History] Liothyronine Sodium [Cytomel] 5 mcg PO DAILY 10/16/16 [History] Oxycodone HCl/Acetaminophen [Percocet 5-325 mg Tablet] 1 - 2 each PO Q4H PRN [History] Venlafaxine XR (24 HR) [Effexor XR] 75 mg PO DAILY 10/16/16 [History] Venlafaxine XR (24 HR) [Effexor Xr] 150 mg PO DAILY 10/16/16 [History] Atorvastatin [Lipitor] 40 mg PO HS #30 tablet 10/18/16 [Rx] Allergies/Adverse Reactions: Allergies No Known Allergies Allergy (Verified 10/15/16 21:51) Procedures/tests Complete & Pending: Procedures Performed prior 72 hours Category Date Time Status MR head/brain wo/w con [MR] Routine MRI 10/17/16 08:09 Draft ECG 12 lead ECG [ECG] Routine Y 10/16/16 06:24 Completed ECG 12 lead ECG [ECG] Routine Y 10/17/16 12:24 Completed EV echocardiogram Routine Y 10/16/16 07:53 Completed Date of admission: 10/15/16 18:54 Primary care physician: Amira Oro MD Consults: 10/15/16 21:47 Consult to Neurology [CONS] Routine Consulting Provider: [facility] Reason for Consult: New onset seizure Time Notified: 21:47 Call Completed: No 10/16/16 11:03 Consult to Interventional Radiology [CONS] Routine Consulting Provider: Radiology Interventional Cols Reason for Consult: LP for seizure activity Call Completed: No 10/17/16 14:32 Consult to Interpret Exam [CONS] Routine Consulting Provider: Adi Ogden Consult to Interpret Exam: Interpret EEG - Patient Status Disposition: Home, Self-Care Condition: Good - Discharge Instructions Instructions: Chest Pain (DC), Stress (DC), Stress (GEN), Chronic Hypertension (DC), Anxiety (DC), Anxiety (GEN), Women and Epilepsy (DC), Women and Epilepsy ( GEN), Anxiety, 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 Follow-up with your primary care provider in the next 3-5 days 2. Take all prescriptions as prescribed, any concerns or questions contact her primary care provider. 3. Return to the emergency department if: Hospital course: Ms. Parker is a 56 year old female - Time Spent with Patient Total time spent providing and/or coordinating discharge services: - Constitutional Vitals: Temp Pulse Resp BP Pulse Ox 98 F 81 16 164/90 95 10/18/16 11:51 10/18/16 11:51 10/18/16 11:51 10/18/16 11:51 10/18/16 11:51 - Attending Attestation I examined this patient and my medical decision-making was reviewed with the JAVA LEAD ARCHITECT/PA/Advanced Practice Nurse/Resident Physician. I agree with the documented findings, disposition and treatment plan as described except to the extent set forth below. <Juan J Cloud - Last Filed: 10/18/16 17:09> Date of Encounter: 10/18/16 Time of Encounter: 08:49 - Discharge Diagnosis (1) Hypokalemia Priority: Primary Status: Acute (2) New onset seizure Priority: Primary Status: Acute (3) Chest pain Priority: Primary Status: Acute Qualifiers: Chest pain type: unspecified Qualified Code(s): R07.9 - Chest pain, unspecified (4) Hypertension Priority: Secondary Status: Acute Qualifiers: Hypertension type: essential hypertension Qualified Code(s): I10 - Essential (primary) hypertension (5) DVT prophylaxis Priority: Secondary Status: Acute Procedures/tests Complete & Pending: Procedures Performed prior 72 hours Category Date Time Status MR head/brain wo/w con [MR] Routine MRI 10/17/16 08:09 Draft ECG 12 lead ECG [ECG] Routine Y 10/16/16 06:24 Completed EV echocardiogram Routine Y 10/16/16 07:53 Completed Date of admission: 10/15/16 18:54 Primary care physician: Amira Oro MD Consults: 10/15/16 21:47 Consult to Neurology [CONS] Routine Consulting Provider: [facility] Reason for Consult: New onset seizure Time Notified: 21:47 Call Completed: No 10/16/16 11:03 Consult to Interventional Radiology [CONS] Routine Consulting Provider: Radiology Interventional Cols Reason for Consult: LP for seizure activity Call Completed: No 10/17/16 14:32 Consult to Interpret Exam [CONS] Routine Consulting Provider: Adi Ogden Consult to Interpret Exam: Interpret EEG Discharging clinician: Juan J Cloud Anticipated date of discharge: 10/18/16 - Patient Status Functional capacity at discharge: independent ambulation Overall status at discharge: patient is back to baseline - Diet and Activity Activity: increase activity as tolerated Diet: advance to your usual diet Interval History: Ms. Parker is a 56 year old female with past medical history of hypertension and hyperlipidemia GERD headaches chronic back pain, hypokalemia, thyroid cancer post-thyroidectomy was transferred to our inpatient facility after she suffered seizure-like activity with biting her tongue loss of bowel and bladder and poorly responsive at [facility]. Lab work was obtained her drug screen was negative troponin was 0.056 lactate was 3 white count 16.3 BUN was 20 and creatinine 1.32 urinalysis with small amount of gastritis and a few bacteria CT of head asymmetry of the frontal horns radiology does not find no significant some minimal inflammatory changes involving last mastoid sinus. Patient was transported to our facility for further workup and evaluation from [facility]. she was stable upon arrival admitted to the general medical floor and placed on seizure precautions and evaluated patient bedside. Labs are drawn she is found to have a potassium of 2.4 and received potassium replacement. Neurology was consult and the patient remained nothing by mouth. She underwent echocardiogram with LVEF greater than 70%, normal left ventricular chamber size and thickness and function. Mild left ventricular diastolic dysfunction. Normal right ventricular structure and function. Unable to estimate RVSP due to lack of TR jet. No significant valvular dysfunction. Brain MRI with contrast was ordered given the patient's history of thyroid cancer. MRI of the brain was without significant findings. The patient underwent lumbar puncture without significant cultures. An EEG was performed at the bedside which demonstrated a normal EEG, does not preclude the diagnosis of seizure or epilepsy. She remained stable during her inpatient stay without any recurrent seizure activity. After further neurology evaluation was consideration of this may be related to panic attacks. On 10/18/2016 the patient was seen and evaluated bedside and deemed stable for discharge with close follow-up with her primary care provider. Hospital course: Ms. Parker is a 56 year old female - Time Spent with Patient Total time spent providing and/or coordinating discharge services: - Constitutional Vitals: Temp Pulse Resp BP Pulse Ox 98 F 76 16 137/72 95 10/18/16 06:34 10/18/16 06:34 10/18/16 06:34 10/18/16 06:34 10/18/16 06:34 General appearance: Present: A&O X 3, answers questions appropriately Exam: General: Patient alert, awake, oriented 3, interactive, in no acute distress HEENT: Normocephalic, atraumatic, pupils equal reactive to light, nasal cavity patent and open septum median position, oral mucosa moist, uvula midline, neck supple trachea midline no palpable lymphadenopathy, no thyromegaly. Chest: Symmetric bilateral correlating with respiratory effort, effort nonlabored. Cardiac: Regular rate and rhythm, positive S1, S2, no bruits appreciated bilateral carotids, Radial pulses 2+ bilateral, posterior tibial and dorsal pedal pulses 2+ bilateral. Respiratory: Clear to auscultation all lung owens Abdomen: Soft, nontender, positive bowel sounds, no palpable masses appreciated on examination Extremities: Symmetric bilateral, no erythema or edema, patient moving all 4 extremities spontaneously. Neurologic: No focal deficits appreciated on examination. Face symmetric, muscle strength symmetric bilateral upper and lower extremities. - VTE Documentation of Mechanical Device: Intermittent pneumatic compression device
[2016-10-18] MEDS: Venlafaxine XR (24 HR) 150 MG CAP.ER.24H PO SCH (09:59)
[2016-10-18] MEDS: Venlafaxine XR (24 HR) 75 MG CAP.ER.24H PO SCH (09:59)
[2016-10-18] MEDS: Metoprolol 100 MG TABLET PO SCH (09:59)
[2016-10-18] MEDS: Aspirin 81 MG TAB.CHEW PO SCH (09:59)
[2016-10-18 11:54] VITALS: BP 164/90
--- NOTE | 2016-10-18 18:57 | Electrocardiograph Report ---
[place] [id number] Test Date: 2016-10-17 Pat Name: Kena Parker Department: 111 Room: 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
[2016-10-21 10:54] LABS: CSF Adenosine Deaminase 1.3 U/L (0.0-1.5)
[2016-10-22 11:13] LABS: HSV 2 Glycoprotein G IgG CSF 0.09 IV (<=0.89)
[2016-10-22 11:14] LABS: HSV 1 Glycoprotein G IgG CSF 0.06 IV (<=0.89)
== END 2016-10-18 12:30 | disposition home or self-care (01) ==
LOC: 2NENU → SUATTDRO 18:54
PROVIDERS: ADMIT Internal Medicine; ATTEND Internal Medicine